=== PATIENT | male | born 1975 | race Caucasian/White ===

== ENCOUNTER → 2017-02-28 | Outpatient (CLI) | payer OTHER ==
[~2017-02-28] MED LIST: No meds per pt.
== END ==
LOC: STAR 14:38
PROVIDERS: ATTEND Thoracic Surgery (Cardiothoracic Vascular Surgery)
DX: Z02.9 Encounter for administrative examinations, unspecified (principal)

== ENCOUNTER 2017-03-13 11:42 | Day surgery (SDC) | payer OTHER ==
[~2017-03-13] VITALS: Ht 190.5 cm; Wt 127.3 kg
[~2017-03-13 11:42] MED LIST changes: +BUPIVACAINE/PF-EPI 0.5% 1:200K ONE
[2017-03-13 12:17] VITALS: BP 143/95
[2017-03-13] MEDS ORDERED: LACTATED RINGERS 1,000 ML IV SCH ×2 (12:20→14:25)
[2017-03-13] MEDS ORDERED: FENTANYL PF 250 MCG/5ML ONE (12:39)
[2017-03-13] MEDS ORDERED: MIDAZOLAM 1 MG/ML, 2ML ONE (12:39)
[2017-03-13] MEDS ORDERED: KETAMINE 10 MG/ML, 20ML ONE (12:39)
[2017-03-13] MEDS ORDERED: hydrALAzine 20 MG/ML, 1ML IV PRN (14:30)
[2017-03-13] MEDS ORDERED: HYDROcodone/APAP 5/325 TABLET PO PRN (14:30)
[2017-03-13] MEDS ORDERED: PROMETHAZINE 25 MG/ML, 1ML IV PRN (14:30)
[2017-03-13] MEDS ORDERED: ACETAMINOPHEN 325 MG TABLET PO PRN (14:30)
[2017-03-13] MEDS ORDERED: ALBUTEROL SULFATE 2.5 MG/3 ML NPPB PRN (14:30)
[2017-03-13] MEDS ORDERED: ONDANSETRON 2MG/ML, 2ML IVPush PRN (14:30)
[2017-03-13] MEDS ORDERED: morphine SULFATE 10 MG/ML, 1ML IVPush PRN (14:30)
[2017-03-13] MEDS ORDERED: KETOROLAC 30 MG/1 ML IVPush PRN (14:30)
[2017-03-13] MEDS ORDERED: MEPERIDINE/PF 25MG/0.5ML IVPush PRN (14:30)
[2017-03-13] MEDS ORDERED: FENTANYL PF 100 MCG/2ML ONE (14:35)
[2017-03-13] MEDS ORDERED: ACETAMINOPHEN 650 MG/20.3 ML UDC ONE (14:35)
[2017-03-13] MEDS ORDERED: OXYcodone 5 MG/5 ML ORAL.SOL UDC ONE ×2 (14:35→15:17)
[2017-03-13] MEDS: FENTANYL PF 100 MCG/2ML IV PRN ×2 (14:36→14:43)
[2017-03-13] MEDS: OXYcodone 5 MG/5 ML ORAL.SOL UDC PO PRN ×2 (14:41→15:17)
[2017-03-13] MEDS ORDERED: ALBUTEROL SULFATE 2.5 MG/3 ML ONE (14:47)
[2017-03-13] MEDS ORDERED: HYDROmorphone 2 MG/ML, 1ML ONE (14:50)
[2017-03-13] MEDS: HYDROmorphone 1 MG/ML, 1ML IV PRN ×2 (14:54→15:07)
[2017-03-13] MEDS ORDERED: DIAZEPAM 5 MG/ML, 2ML IV ONE (15:30)
[2017-03-13] MEDS ORDERED: ONDANSETRON 2MG/ML, 2ML ONE ×2 (15:47→16:27)
[2017-03-13] MEDS ORDERED: DEXAMETHASONE 4 MG/ML, 1ML ONE (16:27)
[2017-03-13] MEDS ORDERED: GLYCOPYRROLATE 0.2MG/1ML ONE (16:27)
[2017-03-13] MEDS ORDERED: CEFAZOLIN 1,000 MG ONE (16:27)
[2017-03-13] MEDS ORDERED: ROCURONIUM 10 MG/ML ONE (16:27)
[2017-03-13] MEDS ORDERED: KETOROLAC 30 MG/1 ML ONE (16:27)
[2017-03-13] MEDS ORDERED: NEOSTIGMINE 1 MG/ML, 10ML ONE (16:27)
[2017-03-13] MEDS ORDERED: SUCCINYLCHOLINE 20 MG/ML, 10ML ONE (16:27)
[2017-03-13] MEDS ORDERED: PROPOFOL 10 MG/ML, 20ML ONE (16:27)
[2017-03-13] MEDS ORDERED: EPHEDRINE 50 MG/ML, 1ML ONE (16:27)
== END 2017-03-13 16:45 ==
LOC: OUT 11:42
PROVIDERS: ATTEND Thoracic Surgery (Cardiothoracic Vascular Surgery)
DX: K43.6 Other and unspecified ventral hernia with obstruction, without gangrene (principal); F17.200 Nicotine dependence, unspecified, uncomplicated; Z88.0 Allergy status to penicillin
CPT/HCPCS: 49653; 94640; C1781; J0330; J0690; J1100; J1170; J1885; J2250; J2405; J2704; J2710; J3010; J3360; J7120; S2900; J3490; J7613